=== PATIENT | male | born 1985 | race Caucasian/White ===

== ENCOUNTER 2025-05-15 08:45 | Emergency (ER) | payer OTHER, MEDICAID ==
[~2025-05-15] VITALS: Ht 180.3 cm; Wt 65.4 kg
--- NOTE | 2025-05-15 08:59 | ED.PDOC ---
Musculoskeletal HPI Comments 39-year-old male patient presents to the clinic for right foot pain. Patient has a history of drop foot and neuropathy for 2 years. Denies any history of diabetes. Patient states that about 2 months ago he kicked something with the right foot and had significant bruising and swelling. Bruising has resolved. Swelling has decreased. Patient followed up with a plain clothes police officer and was prescribed Bactrim. Patient states that he took the Bactrim for 7 days. Patient completed the course of antibiotics about 2-3 weeks ago. Patient continues to have swelling and redness. Patient states that he has pain but that it is mostly due to neuropathy and nerve pain. Chief Complaint: Lower Extremity Time Seen by MD: 08:51 Reviewed Notes: Nurses Notes, Medications, Allergies Allergies: Coded Allergies: NO KNOWN ALLERGIES (Unverified , 05/15/25) Information Source: Patient Mode of Arrival: Ambulatory Location: Right Extremity Location: Foot Timing: Months Severity: Mild Past Medical History PAST MEDICAL HISTORY: Denies Surgical History: Tonsillectomy Family History Family History: Unknown Social History Smoker: Non-Smoker Alcohol: Occasionally Drugs: Denies Drug Use Lives In: Home Constitutional: denies: chills, diaphoresis, fatigue, fever, malaise, sweats, weakness, others EENTM: denies: blurred vision, double vision, ear bleeding, ear discharge, ear drainage, ear pain, ear ringing, eye pain, eye redness, hearing loss, mouth pain, mouth swelling, nasal discharge, nose bleeding, nose congestion, nose pain, photophobia, tearing, throat pain, throat swelling, voice changes, others Respiratory: denies: cough, hemoptysis, orthopnea, SOB at rest, shortness of breath, SOB with excertion, stridor, wheezing, others Cardiovascular: denies: chest pain, dizzy spells, diaphoresis, Dyspnea on exertion, edema, irregular heart beat, left arm pain, lightheadedness, palpitations, PND, syncope, others Gastrointestinal: denies: abdomen distended, abdominal pain, blood streaked bowels, constipated, diarrhea, dysphagia, difficulty swallowing, hematemesis, melena, nausea, poor appetite, poor fluid intake, rectal bleeding, rectal pain, vomiting, others Genitourinary: denies: burning, dysuria, flank pain, frequency, hematuria, incontinence, penile discharge, penile sore, pain, testicle pain, testicle swelling, urgency, others Neurological: denies: dizziness, fainting, headache, left sided numbness, left sided weakness, numbness, paresthesia, pre-existing deficit, right sided numbness, right sided weakness, seizure, speech problems, tingling, tremors, weakness, others Musculoskeletal: reports: others (Neuropathy to bilateral feet, swelling to the right foot); denies: back pain, gout, joint pain, joint swelling, muscle pain, muscle stiffness, neck pain Allergic/Immunocompromised: denies: Difficulty Healing, Frequent Infections, Hives, Itching, others Endocrine: denies: excessive hunger, excessive sweating, excessive thirst, excessive urination, flushing, intolerance to cold, intolerance to heat, un explained weight gain, unexplained weight loss, others Psychiatric: denies: anxiety, bipolar disorder, depression, hopeless, panic disorder, schizophrenia, sleepless, suicidal, others All Other Systems: Reviewed and Negative Physical Exam General Appearance: No Apparent Distress, Normal HEENT: Normal ENT Inspection, Pharynx Normal, TMs Normal Neck: Full Range of Motion, Non-Tender, Normal, Normal Inspection Respiratory: Chest Non-Tender, Lungs Clear, No Accessory Muscle Use, No Respiratory Distress, Normal Breath Sounds Cardiovascular: No Edema, No JVD, No Murmur, No Gallop, Normal Peripheral Pu lses, Regular Rate/Rhythm Breast Exam: Deferred Gastrointestinal: No Organomegaly, Non Tender, No Pulsatile Mass, Normal Bowel Sounds, Soft Genitalia: Deferred Pelvic: Deferred Rectal: Deferred Extremities: Inflammation (Inferior to the 2-4 digitd of the right foot, approx 3cm in diameter), No calf tenderness, Normal capillary refill, Normal inspection, Normal range of motion, Non-tender (Dorsal portion of right foot), No pedal edema, Swelling (Dorsal portion of right foot) Musculoskeletal : Apperance: Normal Neurologic: Alert, computer architect II-XII nml as Tested, No Motor Deficits, Normal Affect, Normal Mood, No Sensory Deficits Cerebellar Function: Normal Reflexes: Normal Skin: Dry, Normal Color, Warm Lymphatic: No Adenopathy Was a procedure done? Was a procedure done?: No Differential Diagnosis EXT Differential Diagnosis: Cellulitis, Fracture, Contusion X-Ray, Labs, Meds, VS Vital Signs Date Time Temp Pulse Resp B/P (MAP) Pulse Ox O2 Delivery O2 Flow Rate FiO2 05/15/25 09:25 100 18 99 Room Air 05/15/25 09:25 98.1 100 18 138/67 (90) 99 98.1 05/15/25 08:47 98.1 100 14 151/117 99 98.1 PATIENT: ADRIANNA MALINT: [id number] UNIT: [id number] : 1985 LOC: ER ROOM / BED: / AGE / SEX: 39 / M ADM STATUS: [facility] ER SERVICE ORDERING PHYSICIAN: SONALI MEJIA [employer]INE[employer] PROCEDURE(s): RFOOT - R FOOT 3 VIEW XRAY REASON: right foot pain ORDER NUMBER(s): [id number], ACCESSION NUMBER(s): [id number] XY R FOOT 3 VIEW XRAY, INDICATION: right foot pain TECHNICAL DATA: Frontal, oblique and lateral views were obtained of the right foot. COMPARISON: XY L FOOT 3 VIEW XRAY on DOS: 04/18/25 FINDINGS: Subacute fracture at the 2, 4, 5 metatarsal heads. Bones are osteopenic. Joint spaces are maintained. Alignment is anatomic. The hallux sesamoids appear normal. Soft tissues are within normal limits. IMPRESSION: Subacute fracture at the 2, 4, 5 metatarsal heads. Bones are osteopenic. ATED BY: FRANK NGUYỄN MD DICTATED DATE/TIME: 05/15/25 100 SIGNED BY: FRANK NGUYỄN MD SIGNED DATE/TIME: 05/15/25 1009 CC: PATIENT: ADRIANNA MALINT: [id number]: [id number] : 1985 LOC: ER ROOM / BED: / AGE / SEX: 39 / M ADM STATUS: [facility] ER SERVICE ORDERING PHYSICIAN: SONALI MEJIA [employer] ENGINE[employer] PROCEDURE(s): RLEXT - RIGHT LOWER EXTREMITY ULTRASOU REASON: r/o abscess, fluid ORDER NUMBER(s): [id number], ACCESSION NUMBER(s): [id number] Targeted ultrasound of the dorsal right foot Date: 05/15/2025 10:36 AM CLINICAL HISTORY: r/o abscess, fluid COMPARISON: None TECHNIQUE: Multiple grayscale and color doppler images obtained of the area of interest in the dorsal portion of the right foot. Findings/impression: 1. There is an ill-defined heterogeneous collection with mixed echogenicity measuring 3.1 x 0.9 x 3.2 cm. This could reflect focal soft tissue swelling, hematoma, or developing abscess. ATED BY: LAURA CANO MD DICTATED DATE/TIME: 05/15/251246 SIGNED BY: LAURA CANO MD SIGNED DATE/TIME: 05/15/251246 CC: X-Ray, Labs, Meds, VS Comment On re-evaluation patient has symptomatic improvement. Patient is stable for discharge at this time. All test results and diagnostic imaging have been interpreted. All diagnostic findings, discharge care, and education instruction provided to the patient. Follow-up with PCP in 2-3 days Patient to follow up with orthopedic surgeon. Patient has ortho shoe in place. Patient advised that he has a metatarsal fracture of the 2nd through 4th metatarsal on the right foot Patient verbalized understanding, discharge instructions and agrees to treatment plan Vital signs are stable Patient is ambulatory Patient advised of which symptoms necessitate a return visit to the emergency room. Patient to return emergency room for any new worsening symptoms. Patient is aware that the purpose of this visit is for an acute medical e mergency requiring emergent stabilization. Chronic conditions, including malignancies have not been ruled out. Patient is instructed to follow up with PCP as directed for continued care and workup. If unable to arrange follow up, patient is to return to the emergency room for reassessment. Patient was given verbal and written discharge instructions and acknowledges understanding Images Reviewed?: Images reviewed and evaluated by me Time of 1ST Reevaluation: 09:11 Reevaluation 1ST: Unchanged Patient Education/Counseling: Diagnosis, Treatment, Prognosis Family Education/Counseling: No Family Present Departure 1 Departure Time of Disposition: 10:54 Impression: Primary Impression: Metatarsal bone fracture Qualified Codes: S92.324A - Nondisplaced fracture of second metatarsal bone, right foot, initial encounter for closed fracture Disposition: 01 HOME / SELF CARE / HOMELESS Condition: Fair Discharged With: Self Critical Care Note Critical Care Time?: No Stability Stability form required: No Heart Score Heart Score: Heart Score Response (Comments) Value History N/A 0 EKG N/A 0 Age N/A 0 Risk Factors N/A 0 Troponin N/A 0 Total 0 SONALI MEJIA [facility] May 15, 2025 08:59
[2025-05-15 09:25] VITALS: BP 138/67; PULSE 100; RESP 18; TEMP 98.1; O2SAT 99
--- NOTE | 2025-05-15 10:12 | DVH ---
XY R FOOT 3 VIEW XRAY, INDICATION: right foot pain TECHNICAL DATA: Frontal, oblique and lateral views were obtained of the right foot. COMPARISON: XY L FOOT 3 VIEW XRAY on DOS: 04/18/25 FINDINGS: Subacute fracture at the 2, 4, 5 metatarsal heads. Bones are osteopenic. Joint spaces are maintained. Alignment is anatomic. The hallux sesamoids appear normal. Soft tissues are within normal limits. IMPRESSION: Subacute fracture at the 2, 4, 5 metatarsal heads. Bones are osteopenic.
--- NOTE | 2025-05-15 12:49 | DVH ---
Targeted ultrasound of the dorsal right foot Date: 05/15/2025 10:36 AM CLINICAL HISTORY: r/o abscess, fluid COMPARISON: None TECHNIQUE: Multiple grayscale and color doppler images obtained of the area of interest in the dorsal portion of the right foot. Findings/impression: 1. There is an ill-defined heterogeneous collection with mixed echogenicity measuring 3.1 x 0.9 x 3.2 cm. This could reflect focal soft tissue swelling, hematoma, or developing abscess.
== END 2025-05-15 11:05 | disposition home or self-care (01) ==
LOC: ER 08:45
DX: S92.324A Nondisplaced fracture of second metatarsal bone, right foot, initial encounter for closed fracture (principal); Z90.89 Acquired absence of other organs; X58.XXXA Exposure to other specified factors, initial encounter; Y93.89 Activity, other specified; Y92.89 Other specified places as the place of occurrence of the external cause; Y99.8 Other external cause status
CPT/HCPCS: 73630; 76881